=== PATIENT | male | born 1955 | race Caucasian/White ===

== ENCOUNTER 2019-11-23 12:41 | Emergency (ER) | payer OTHER ==
[~2019-11-23] VITALS: Ht 177.8 cm; Wt 77.3 kg
[2019-11-23 12:48] VITALS: BP 123/89
[2019-11-23] MEDS ORDERED: LORA-269 PO (14:33)
[2019-11-23] MEDS ORDERED: GABA300C PO (14:33)
== END 2019-11-23 14:43 | disposition home or self-care (01) ==
LOC: ER 12:41
DX: F10.10 Alcohol abuse, uncomplicated (principal); F17.200 Nicotine dependence, unspecified, uncomplicated; Z79.899 Other long term (current) drug therapy; Y90.9 Presence of alcohol in blood, level not specified
CPT/HCPCS: 99283